=== PATIENT | female | born 1975 | race Caucasian/White ===

== ENCOUNTER → 2019-11-19 10:31 | Outpatient (CLI) | payer BC, SELFPAY ==
--- NOTE | ~2019-11-19 | MM_ITS ---
EXAMINATION: MM screening sabra BI w lorena HISTORY: Screening mammogram TECHNIQUE: Craniocaudal and mediolateral oblique 3-D tomosynthesis images were obtained and synthetic 2-D images were generated. CAD analysis was submitted and interpreted. COMPARISON: Comparison to multiple prior studies sequentially, with oldest reviewed study dated 07/24. BREAST PARENCHYMAL COMPOSITION: The breasts are extremely dense, which lowers the sensitivity of mamm ography. FINDINGS: There is no evidence of suspicious mass, calcification, or architectural distortion to sugg est malignancy in either breast. There has been no suspicious interval change. IMPRESSION: 1. No mammographic evidence of malignancy. 2. Recommend routine screening mammography in one year. BI-RADS Category 1: Negative Reviewed, dictated and finalized at location A. OR MILITARY ANALYST
== END ==
PROVIDERS: PCP Obstetrics & Gynecology Gynecology; Visit Provider Nurse Practitioner
DX: Z12.31 Encounter for screening mammogram for malignant neoplasm of breast (principal)
CPT/HCPCS: 77063; 77067

== ENCOUNTER → 2020-11-04 00:11 | Outpatient (CLI) | payer BC, SELFPAY ==
[2020-11-04 18:19] LABS: SARS-CoV-2 RNA PCR Negative
== END ==
PROVIDERS: PCP Family Medicine; Visit Provider Obstetrics & Gynecology Gynecology
DX: Z01.812 Encounter for preprocedural laboratory examination (principal); Z20.822 Contact with and (suspected) exposure to COVID-19
CPT/HCPCS: C9803; U0003; U0005

== ENCOUNTER 2020-11-07 00:11 | Day surgery (SDC) | payer BC, SELFPAY ==
[2020-11-01 13:21] VITALS: BMI 20.8
[2020-11-07 06:33] VITALS: BP 123/80; PULSE 101; RESP 20; TEMP 36.3; O2SAT 100
[2020-11-07] MEDS: ACETAMINOPHEN 500 MG TABLET 1000 MG PO (06:39)
[2020-11-07] MEDS: LACTATED RINGERS 1,000 ML 30 ML IV CONT (06:40)
--- NOTE | 2020-11-07 07:03 | WPDANESEPPF ---
Anes - Initial Pre Proc Eval Procedure: Operation Date: 11/07/20 07:30 Proposed Procedures p Hysteroscopy with Myosure, Cervical Biopsy - Kassy Hall MD Date/Time: 11/07/20 07:03 Surgeon: Kassy Hlal MD Pre Op Diagnosis: fibroids Patient Data Age: 44 Gender: F Height: 5 ft 4 in Weight: 51.6 kg Last Vital Signs Temp 36.3 C L 11/07/20 06:33 Pulse 101 H 11/07/20 06:33 Resp 20 11/07/20 06:33 BP 123/80 11/07/20 06:33 Pulse Ox 100 11/07/20 06:33 Allergies Allergy/AdvReac Type Severity Reaction Status Date / Time Sulfa (Sulfonamide Allergy Intermediate Itching Verified 11/07/20 06:23 Antibiotics) amoxicillin Allergy Mild Itching Verified 11/07/20 06:23 codeine Allergy Mild Vomiting Verified 11/07/20 06:23 Penicillins Allergy Mild Itching Verified 11/07/20 06:23 Home Medications Medication Instructions Recorded Confirmed Type ergocalciferol (vitamin D2) 1,250 1,250 mcg PO WEEKLY 08/25/20 11/07/20 History mcg (50,000 unit) capsule drospirenone (contraceptive) 1 tablet PO DAILY 11/01/20 11/07/20 History [Slynd] montelukast 10 mg tablet 10 mg PO DAILY #90 tablet 11/04/20 11/07/20 Rx Patient hx anesthesia problems: none Family hx anesthesia problems: none PMFSH Family History Family History Other Family history of coronary artery disease Hypertension Social History Social History Smoking status: Never smoker Second hand tobacco smoke exposure: No Alcohol intake: current Substance use: never Living arrangements: with family Gender identity (if verbalized by the patient): Female Spiritual care concerns: No Anes - Eval Final PreProcedure Day of Procedure 11/07/20 07:03 Patient weight: normal Heart: regular rate and rhythm Lungs: clear to auscultation Airway: Mallampati scale class 1 Neurological: alert and oriented Last oral intake: >/= 8 hours ASA classification: I Emergent: no Anesthetic plan: proceed Anesthesia type and monitoring: general GIVS and standard monitoring Informed Consent: The patient's anesthetic plan and its attendant risks and benefits were discussed with the patient/family/POA. Questions were solicited and answers provided to the satisfaction of the patient/family/POA.
--- NOTE | 2020-11-07 07:25 | WPDHPUPDATE1 ---
History and Physical Update Update Date/Time: 11/07/20 07:25 History and Physical has been reviewed, including an updated exam of the patient. There are NO changes in the patient's condition. Risks, benefits, and alternatives have been discussed and questions answered. Patient agrees to proceed with procedure.
--- NOTE | 2020-11-07 07:26 | PM.HPGS ---
History of Present Illness History of Present Illness Consent: Risks, benefits, and alternatives have been discussed and questions answered. Patient agrees to proceed with procedure. Chief complaint: fibroids Narrative: Delfina Trujillo is a 44 year old female with heavy cycles. Office hysteroscopy and EMB were benign but a submucosal fibroid noted. Plan to remove with myosure. Also, a cervical ulcer was noted. Cultures were negative and biopsy showed inflammation. She has had antibiotics. If still present, plan to rebiopsy lesion. Risks of infection, bleeding, perforation, and fluid imbalance as well as possible pathology discussed. Agrees to proceed. Review of Systems Review of Systems: Narrative: review of systems not repeated day of surgery. Patient states there have been no changes in her complaints. [facility] Past Medical History Medical History (Updated 11/07/20 @ 07:33 by Kassy Hall MD) (normal spontaneous vaginal delivery) Family History Family History Other Family history of coronary artery disease Hypertension Social History Social History Smoking status: Never smoker Second hand tobacco smoke exposure: No Alcohol intake: current Substance use: never Living arrangements: with family Gender identity (if verbalized by the patient): Female Spiritual care concerns: No Meds Home Medications and Allergies Home Medications Medication Instructions Recorded Confirmed Type ergocalciferol (vitamin D2) 1,250 1,250 mcg PO WEEKLY 08/25/20 11/07/20 History mcg (50,000 unit) capsule drospirenone (contraceptive) 1 tablet PO DAILY 11/01/20 11/07/20 History [Slynd] montelukast 10 mg tablet 10 mg PO DAILY #90 tablet 11/04/20 11/07/20 Rx Allergies Allergy/AdvReac Type Severity Reaction Status Date / Time Sulfa (Sulfonamide Allergy Intermediate Itching Verified 11/07/20 06:23 Antibiotics) amoxicillin Allergy Mild Itching Verified 11/07/20 06:23 codeine Allergy Mild Vomiting Verified 11/07/20 06:23 Penicillins Allergy Mild Itching Verified 11/07/20 06:23 Vital Signs Vital Signs - 24 hr 11/07/20 06:33 Temperature 97.4 F L Pulse Rate 101 H Respiratory Rate 20 Blood Pressure 123/80 Pulse Oximetry 100 Exam Const: General: healthy appearing and alert Orientation/consciousness: patient oriented x3 Resp: Effort & Inspection: normal respiratory effort Auscultation: clear to auscultation bilaterally Cardio: Rate: regular rate Rhythm: regular rhythm GI: GI Palp: Yes Soft to palpation, No Tenderness to palpation present (GI) and No Palpable mass present : External Female Exam: normal external appearance Speculum Exam - Vagina: normal appearance of the vagina and normal vaginal discharge Speculum Exam - Cervix: Cervical lesion present (anterior ulceration on last exam) Bimanual exam- vagina & uterus: uterine size normal and consistency normal Bimanual Exam- Adnexa, other: normal adnexae and No adnexal tenderness Neuro: General: patient oriented x3 Assessment and Plan Assessment and plan (1) Fibroids: Code(s): D21.9 - Benign neoplasm of connective and other soft tissue, unspecified Status: Acute Assessment and Plan: plan myosure excision (2) Cervical ulceration: Code(s): N86 - Erosion and ectropion of cervix uteri Status: Acute Assessment and Plan: plan to biopsy if still present
--- NOTE | 2020-11-07 08:16 | PM.PROC ---
Procedure Note - Detailed Date of procedure: 11/07/20 Pre-op diagnosis: fibroids cervical ulcer Post-op diagnosis: same Procedure performed: Hysteroscopy with D&C and myosure cervical biopsies Description of procedure: The patient was taken to the operating room and placed under anesthesia in the dorsal lithotomy position. She is prepped and draped in the usual sterile fashion. Spivey speculum was placed in the vagina and the cervix is grasped on the anterior lip with a tenaculum. The cervix is injected in each quadrant with 1% lidocaine. There is a large 4cm ulcer noted at the left anterior portion of the cervix. The sound is used in the internal os is noted to be stenotic. The os Finders are used and the cervix is able to be opened. The cervix is serially dilated with Hegar to an 8. The uterus is sounded to an 8.5. The hysteroscope is placed and stated findings are noted. The MyoSure device is opened and placed. Under direct visualization both lesions are removed in their entirety. The hysteroscope was removed the medium sharp curette is used to sharply curette the endometrium until a good uterine cry is noted in all areas. Minimal materials obtained consistent with the atrophic appearance. The cervical punch biopsy is then used to biopsy the cervical ulcer at 12 5 and 7:00 a.m. randomly. The ulcer appears uniform throughout. Monsel's is applied to the ulcer biopsy site and good hemostasis is noted. All instruments are removed from the vagina and the patient taken down from lithotomy position. She is awakened from anesthesia and taken to recovery in stable condition. Anesthesia: MAC and local Surgeon: Kassy Hall MD Estimated blood loss (mL): 10 Drains: No Packing: No Pathology: yes (endometrial shavings and curettings; cervical biopsies) Complications: No immediate complications Condition: stable Disposition: PACU Findings: 4 cm anterior left cervical ulceration; stenotic cervix; uterus 8.5 cm; 2 small polyps (vs fibroids) one at fundus midline and the other right side wall; otherwise grossly atrophic
[2020-11-07 08:24] VITALS: BP 119/75; PULSE 85; RESP 16; O2SAT 100
[2020-11-07 08:45] VITALS: BP 113/73; PULSE 79; RESP 14
[2020-11-07 09:15] VITALS: BP 116/80; PULSE 77; RESP 14
[2020-11-07] MEDS: ONDANSETRON INJ 4 MG/2 ML VIAL IV PUSH (09:29)
[2020-11-07 09:45] VITALS: BP 113/74; PULSE 74; RESP 14
--- NOTE | 2020-11-07 09:47 | SUR.PHASEII ---
0928; REVIEWING DC INSTRUCTIONS. PT C/O NAUSEA. ZOFRAN GIVEN.
--- NOTE | 2020-11-07 09:49 | SUR.PHASEII ---
9127; PT DRINKING WHITE SODA AND EATING SALTINE CRACKERS
[2020-11-07 10:10] VITALS: BP 112/74; PULSE 76; RESP 14
--- NOTE | 2020-11-07 10:25 | SUR.PHASEII ---
1015; PT AWAKE AND ALERT. STATES STILL HAVING MILD NAUSEA AND SOME DIZZINESS. OFFERED BENADRYL IV. PT REFUSED. STATES SHE WANTS TO GO HOME AND GO TO BED. INSTRUCTED PT SHE MAY HAVE DIZZINESS WITHOUT WARNING FROM HER ANESTHESIA AND THE SCOPE PATCH. 1025; PT ASSISTED IN GETTING DRESSED FOR SAFETY.
--- NOTE | 2020-11-07 10:28 | SUR.PHASEII ---
PT OFFERED TO STAY AND REST LONGER. PT STATES SHE WANTS TO GO HOME. MEETS DISCHARGE CRITERIA
--- NOTE | 2020-11-07 10:41 | SUR.PHASEII ---
1030; PT DRESSED, AWAKE AND ALERT. STATES READY TO GO HOME
== END 2020-11-07 10:35 | disposition home or self-care (01) ==
PROVIDERS: Family Provider Obstetrics & Gynecology Gynecology; PCP Family Medicine; Visit Provider Obstetrics & Gynecology Gynecology
PROC: 0U5B8ZZ Destruction of Endometrium, Via Natural or Artificial Opening Endoscopic (ICD-10-PCS; CPT 58563; principal; 2020-11-07 07:30)
DX: N86 Erosion and ectropion of cervix uteri (principal); N88.2 Stricture and stenosis of cervix uteri; N84.0 Polyp of corpus uteri
CPT/HCPCS: 58558; 88305; A9270; J1100; J1885; J2250; J2405; J2704; J3010; J7030; J7120

== ENCOUNTER → 2020-11-21 12:23 | Outpatient (CLI) | payer BC, SELFPAY ==
--- NOTE | ~2020-11-21 | MM_ITS ---
EXAMINATION: MM screening sabra BI w lorena HISTORY: Screening TECHNIQUE: Craniocaudal and mediolateral oblique 3-D tomosynthesis images were obtained and synthetic 2-D images were generated. CAD analysis was submitted and interpreted. COMPARISON: Comparison to multiple prior studies sequentially, with oldest reviewed study dated 07/24. BREAST PARENCHYMAL COMPOSITION: The breasts are extremely dense, which lowers the sensitivity of mamm ography. FINDINGS: There are developing asymmetries bilaterally in the left breast on CC view and superiorly i n the right breast on MLO view. There are no suspicious calcifications or architectural distortion. IMPRESSION: 1. Developing bilateral breast asymmetries. 2. Additional mammographic views and possible breast ultrasound are recommended. BI-RADS Category 0: Incomplete: Needs additional imaging evaluation. Reviewed, dictated and finalized at location A. CTIONAL SURVEY DRAFTER IMPRESSION: 1. Developing bilateral breast asymmetries. 2. Additional mammographic views and possible breast ultrasound are recommended . BI-RADS Category 0: Incomplete: Needs additional imaging evaluation.
== END ==
PROVIDERS: Visit Provider Nurse Practitioner
DX: Z12.31 Encounter for screening mammogram for malignant neoplasm of breast (principal); R92.8 Other abnormal and inconclusive findings on diagnostic imaging of breast
CPT/HCPCS: 77063; 77067

== ENCOUNTER → 2020-12-10 06:50 | Outpatient (CLI) | payer BC, SELFPAY ==
[2020-12-12 13:22] LABS: SARS-CoV-2 RNA PCR Negative
== END ==
PROVIDERS: Visit Provider Obstetrics & Gynecology Gynecologic Oncology
DX: Z01.812 Encounter for preprocedural laboratory examination (principal); N86 Erosion and ectropion of cervix uteri; N93.9 Abnormal uterine and vaginal bleeding, unspecified
CPT/HCPCS: C9803; U0003; U0005

== ENCOUNTER → 2021-01-31 09:49 | Outpatient (CLI) | payer BC, SELFPAY ==
--- NOTE | ~2021-01-31 | MM_ITS ---
EXAMINATION: MM diagnostic sabra BI w lorena HISTORY: Bilateral breast asymmetries on screening mammogram TECHNIQUE: Additional 3-D tomosynthesis images of the breasts were performed and synthetic 2-D images were generated. CAD analysis was submitted and interpreted. COMPARISON: 11/21/2020, 11/19/2019, 09/09/2018, 06/03/2017 BREAST PARENCHYMAL COMPOSITION: The breasts are extremely dense, which lowers the sensitivity of mamm ography. FINDINGS: There is a return to baseline fibroglandular appearance with spot compression of the breast s in the areas questioned on screening mammogram. There is no suspicious mass, calcification, or arch itectural distortion. IMPRESSION: 1. No mammographic evidence of malignancy. 2. Recommend routine screening mammography in one year. BI-RADS Category 1: Negative Reviewed, dictated and finalized at location A.
== END ==
PROVIDERS: Visit Provider Obstetrics & Gynecology Gynecology
DX: R92.8 Other abnormal and inconclusive findings on diagnostic imaging of breast (principal)
CPT/HCPCS: 77062; 77066; G0279

== ENCOUNTER → 2022-02-10 00:04 | Outpatient (CLI) | payer BC, SELFPAY ==
[2022-02-10 14:50] LABS: Influenza A QL RT-PCR Negative (Negative); Influenza B QL RT-PCR Negative (Negative); SARS-CoV-2 RNA PCR Positive
== END ==
PROVIDERS: PCP Family Medicine; Visit Provider Physician Assistant
DX: R50.9 Fever, unspecified (principal); U07.1 COVID-19
CPT/HCPCS: 87502; C9803; U0003; U0005

== ENCOUNTER → 2022-09-07 15:07 | Outpatient (CLI) | payer BC, SELFPAY ==
--- NOTE | ~2022-09-07 | MM_ITS ---
EXAMINATION: MM screening sabra BI w lorena HISTORY: Screening TECHNIQUE: Craniocaudal and mediolateral oblique 3-D tomosynthesis images were obtained and synthetic 2-D images were generated. CAD analysis was submitted and interpreted. COMPARISON: Comparison to multiple prior studies sequentially, with oldest reviewed study dated 05/21. BREAST PARENCHYMAL COMPOSITION: The breasts are extremely dense, which lowers the sensitivity of mamm ography FINDINGS: The left breast is stable without evidence for malignancy. There is a large mass in the upp er outer quadrant of the right breast. No suspicious calcifications or architectural distortion. IMPRESSION: 1. Mass in the upper outer quadrant of the right breast. 2. Right breast ultrasound recommended. BI-RADS Category 0: Incomplete: Needs additional imaging evaluation. Reviewed, dictated and finalized at location B. E SET UP WORKER
== END ==
PROVIDERS: PCP Family Medicine; Visit Provider Nurse Practitioner
DX: Z12.31 Encounter for screening mammogram for malignant neoplasm of breast (principal); R92.8 Other abnormal and inconclusive findings on diagnostic imaging of breast
CPT/HCPCS: 77063; 77067

== ENCOUNTER → 2022-10-02 09:28 | Outpatient (CLI) | payer BC, SELFPAY ==
--- NOTE | ~2022-10-02 | US_ITS ---
US breast RT limited DATE: 10/02/2022 09:48 INDICATION: Upper outer quadrant right breast mass reported on 09/07/2022 screening mammogram TECHNIQUE: Real-time imaging of upper inner quadrant and lower outer quadrant of right breast COMPARISON: 09/07/2022 screening mammogram FINDINGS: No suspicious mass or shadowing, cyst or other significant sonographic finding is identifie d in the upper outer or lower outer quadrants. IMPRESSION: BI-RADS Category 1: Negative Reviewed, dictated and finalized at Location [facility]. Reviewed, dictated and finalized at location A. F CARRIER
== END ==
PROVIDERS: PCP Family Medicine; Visit Provider Obstetrics & Gynecology Gynecology
DX: R92.8 Other abnormal and inconclusive findings on diagnostic imaging of breast (principal)
CPT/HCPCS: 76642

== ENCOUNTER → 2023-05-24 09:46 | Outpatient (CLI) | payer BC, SELFPAY ==
--- NOTE | ~2023-05-24 | XR_ITS ---
AP and oblique views of the SI joints CLINICAL HISTORY: Back pain FINDINGS: Bilateral SI joints and bilateral SI joints are unremarkable. No erosive or sclerotic vargas e. No degenerative change. Soft tissues are unremarkable. IMPRESSION: Unremarkable exam. Reviewed, dictated and finalized at location M. IMPRESSION: Unremarkable exam.
--- NOTE | ~2023-05-24 | XR_ITS ---
Lumbosacral Spine: AP and lateral views Clinical History: Pain Findings: The normal lordotic curve is maintained. The vertebral bodies and posterior elements are i ntact. The intervertebral disc spaces are preserved. The sacroiliac joints are normally outlined. Impression: No significant abnormality. Reviewed, dictated and finalized at [facility]. Impression: No significant abnormality.
== END ==
PROVIDERS: PCP Family Medicine; Visit Provider Physician Assistant
DX: M54.9 Dorsalgia, unspecified (principal); M54.30 Sciatica, unspecified side
CPT/HCPCS: 72100; 72202